=== PATIENT | female | born 1975 | race African-American/Black ===

== ENCOUNTER 2018-04-24 12:45 | Emergency (ER) | payer MEDICAID ==
[~2018-04-24] VITALS: Ht 167.6 cm; Wt 118.0 kg
[2018-04-24] MEDS ORDERED: TETRACAINE 0.5% OPHTH DROPS 4ML RIGHTEYE ONE (13:45)
[2018-04-24] MEDS ORDERED: FLUORESCEIN SODIUM 1MG/STRIP RIGHTEYE ONE (13:45)
[2018-04-24] MEDS ORDERED: LISINOPRIL 10MG TABLET PO ONE (15:45)
[2018-04-24] MEDS ORDERED: CLONIDINE 0.2MG TABLET PO ONE (17:00)
[2018-04-24 17:10] VITALS: BP 150/96
== END 2018-04-24 17:35 | disposition home or self-care (01) ==
LOC: ER 12:45
DX: H57.11 Ocular pain, right eye (principal); I10 Essential (primary) hypertension; Z98.890 Other specified postprocedural states
CPT/HCPCS: 99284

== ENCOUNTER 2021-09-14 16:02 | Emergency (ER) | payer MEDICAID ==
[~2021-09-14] VITALS: Ht 165.1 cm; Wt 175.0 kg
[2021-09-14 19:08] VITALS: BP 167/100
== END 2021-09-14 19:18 | disposition home or self-care (01) ==
LOC: ER 16:02
DX: M79.89 Other specified soft tissue disorders (principal); R25.2 Cramp and spasm; I10 Essential (primary) hypertension; I49.8 Other specified cardiac arrhythmias
CPT/HCPCS: 93005; 93971; 99284

== ENCOUNTER 2022-06-14 15:09 | Emergency (ER) | payer MEDICAID, OTHER ==
[~2022-06-14] VITALS: Ht 167.6 cm; Wt 146.0 kg
[2022-06-14 15:34] VITALS: BP 156/94
[2022-06-14] MEDS ORDERED: METF-873 PO (15:39)
[2022-06-14] MEDS ORDERED: HYDR12.54 PO (15:39)
[2022-06-14 21:20] LABS: BASOPHILS % 0.9 % (0.0-2.0); EOSINOPHILS % 4.8 % (0.0-5.0); HEMATOCRIT. 39.7 % (36.0-48.0); HEMOGLOBIN. 13.1 g/dL (12.0-16.0); MEAN CORPUSCULAR HEMOGLOBIN 27.6 pg (28.0-32.0); MEAN CORPUSCULAR VOLUME 83.5 fL (81.0-99.0); MEAN PLATELET VOLUME 7.7 fl (7.4-10.4); MONOCYTES % 7.3 % (2.0-8.0); PLATELET 340 x1000/uL (130-400); RED BLOOD CELL COUNT 4.75 mill/uL (4.2-5.4); RED CELL DISTRIBUTION WIDTH 14.9 % (11.6-14.6)
[2022-06-14 21:34] LABS: CHLORIDE 104 mEq/L (98-107)
[2022-06-15] MEDS ORDERED: IBUP-2029 MT (00:38)
[2022-06-15] MEDS ORDERED: METH-653 MT (00:38)
== END 2022-06-15 01:01 | disposition home or self-care (01) ==
LOC: ER 15:09
DX: M94.0 Chondrocostal junction syndrome [Tietze] (principal); R07.89 Other chest pain; E11.9 Type 2 diabetes mellitus without complications; I10 Essential (primary) hypertension; Z98.890 Other specified postprocedural states; Z79.899 Other long term (current) drug therapy
CPT/HCPCS: 36415; 71045; 80053; 84484; 85025; 85379; 93005; 99285

== ENCOUNTER 2022-12-21 13:27 | Emergency (ER) | payer MEDICAID, OTHER ==
[~2022-12-21] VITALS: Ht 167.6 cm; Wt 146.0 kg
[~2022-12-21 13:27] MED LIST: HYDR12.54 PO; IBUP-2029 MT; METF-873 PO; METH-653 MT
[2022-12-21 13:59] LABS: HEMATOCRIT. 37.8 % (36.0-48.0); HEMOGLOBIN. 12.9 g/dL (12.0-16.0); MEAN CORPUSCULAR HEMOGLOBIN 28.1 pg (28.0-32.0); MEAN CORPUSCULAR VOLUME 82.4 fL (81.0-99.0); MEAN PLATELET VOLUME 7.7 fl (7.4-10.4); PLATELET 314 x1000/uL (130-400); RED BLOOD CELL COUNT 4.59 mill/uL (4.2-5.4)
[2022-12-21 14:22] LABS: CHLORIDE 106 mEq/L (98-107)
[2022-12-21] MEDS ORDERED: MAGNESIUM/ALUMINUM HYDROXIDE/SIMETHICONE 30ML UDC PO STA (14:48)
[2022-12-21] MEDS ORDERED: ONDANSETRON 4MG ODT PO STA (14:48)
[2022-12-21] MEDS ORDERED: VISCOUS LIDOCAINE 2% 15 ML UDC PO STA (14:48)
[2022-12-21] MEDS ORDERED: FAMOTIDINE 20MG TABLET PO ONE (15:00)
[2022-12-21 15:16] LABS: PLATELET ESTIMATE NORMAL
[2022-12-21 15:43] LABS: CLARITY URINE CLOUDY (CLEAR); COLOR URINE YELLOW (YELLOW); KETONES URINE TRACE (NEGATIVE); LEUKOCYTE ESTERASE URINE NEGATIVE (NEGATIVE); NITRITE URINE NEGATIVE (NEGATIVE); OCCULT BLOOD URINE NEGATIVE (NEGATIVE); PH URINE 5.5 (4.5-8.0); PROTEIN URINE TRACE (NEGATIVE); SPECIFIC GRAVITY URINE 1.028 (1.005-1.030)
[2022-12-21 16:05] LABS: UCG SCREEN NEGATIVE
[2022-12-21 17:00] VITALS: BP 148/82
[2022-12-21] MEDS ORDERED: MAG355OR21 MT (17:03)
[2022-12-21] MEDS ORDERED: FAMO-135 MT (17:03)
[2022-12-21 17:30] LABS: HCG SCREEN NEGATIVE
== END 2022-12-21 17:27 | disposition home or self-care (01) ==
LOC: ER 13:37
DX: R10.9 Unspecified abdominal pain (principal); I10 Essential (primary) hypertension; E11.9 Type 2 diabetes mellitus without complications; Z98.890 Other specified postprocedural states
CPT/HCPCS: 36415; 76705; 80053; 81003; 81025; 83690; 84703; 85025; 99284; Q0162; Z7610

== ENCOUNTER 2024-06-20 12:25 | Emergency (ER) | payer MEDICAID ==
[~2024-06-20] VITALS: Ht 165.1 cm; Wt 147.4 kg
[~2024-06-20 12:25] MED LIST changes: +FAMO-135 MT; +MAG355OR21 MT; +METF-1149 PO; -METF-873 PO
[2024-06-20 12:30] VITALS: TEMP 98.2; O2SAT 100
[2024-06-20] MEDS ORDERED: KETO10TA2 MT (14:31)
[2024-06-20] MEDS ORDERED: AMOX1TAB16 MT (14:32)
[2024-06-20] MEDS ORDERED: CHLO473M2 MT (14:33)
[2024-06-20] MEDS: AMOXICILLIN 500MG CAPSULE PO ONE (14:59)
[2024-06-20] MEDS: KETOROLAC 30MG/ML VIAL IM ONE (14:59)
[2024-06-20 15:11] VITALS: BP 133/89; PULSE 82; RESP 17; O2SAT 97
== END 2024-06-20 15:12 | disposition home or self-care (01) ==
LOC: ER 12:25
DX: K04.7 Periapical abscess without sinus (principal); I10 Essential (primary) hypertension; E11.9 Type 2 diabetes mellitus without complications; Z98.890 Other specified postprocedural states; Z79.899 Other long term (current) drug therapy
CPT/HCPCS: 96372; 99283; J1885; Z7610

== ENCOUNTER 2024-08-16 12:31 | Emergency (ER) | payer MEDICAID, OTHER ==
[~2024-08-16] VITALS: Ht 165.1 cm; Wt 145.0 kg
[~2024-08-16 12:31] MED LIST changes: +AMOX1TAB16 MT; +CHLO473M2 MT; +KETO10TA2 MT
[2024-08-16 12:44] VITALS: O2SAT 98
[2024-08-16 14:43] LABS: CLARITY URINE CLEAR (CLEAR); COLOR URINE DARK YELLOW (YELLOW); GLUCOSE URINE NEGATIVE (NEGATIVE); KETONES URINE NEGATIVE (NEGATIVE); LEUKOCYTE ESTERASE URINE NEGATIVE (NEGATIVE); NITRITE URINE NEGATIVE (NEGATIVE); OCCULT BLOOD URINE NEGATIVE (NEGATIVE); PH URINE 5.5 (4.5-8.0); PROTEIN URINE TRACE (NEGATIVE); SPECIFIC GRAVITY URINE 1.029 (1.005-1.030); UROBILINOGEN URINE 0.2 E.U./dL (0.2-1.0)
[2024-08-16 14:54] LABS: SQUAMOUS EPITHELIAL CELL URINE 3+ /lpf (RARE/1+)
[2024-08-16 14:56] LABS: BACTERIA URINE 1+; WBC URINE 0-2 /hpf (0-2)
[2024-08-16 14:57] LABS: RBC URINE NONE SEEN /hpf (0-2)
[2024-08-16] MEDS ORDERED: CEPH500T MT (15:19)
[2024-08-16 15:42] VITALS: BP 146/89; PULSE 95; RESP 18; TEMP 36.89184; O2SAT 98
== END 2024-08-16 15:46 | disposition home or self-care (01) ==
LOC: ER 12:31
DX: N39.0 Urinary tract infection, site not specified (principal); E11.9 Type 2 diabetes mellitus without complications; I10 Essential (primary) hypertension; Z98.890 Other specified postprocedural states
CPT/HCPCS: 81003; 81025; 99283

== ENCOUNTER 2024-10-18 13:28 | Emergency (ER) | payer MEDICAID, OTHER ==
[~2024-10-18] VITALS: Ht 167.6 cm; Wt 145.2 kg
[~2024-10-18 13:28] MED LIST changes: +CEPH500T MT
[2024-10-18 13:30] VITALS: BP 159/96; TEMP 36.8; O2SAT 98
[2024-10-18 13:33] VITALS: PULSE 120; RESP 18; O2SAT 100
[2024-10-18 14:12] LABS: BASOPHILS % 0.7 % (0.0-2.0); HEMATOCRIT. 41.5 % (36.0-48.0); HEMOGLOBIN. 13.5 g/dL (12.0-16.0); LYMPHOCYTES % 36.8 % (20.0-50.0); MEAN CORPUSCULAR HEMOGLOBIN 27.3 pg (28.0-32.0); MEAN CORPUSCULAR HGB CONC 32.6 g/dL (31.0-37.0); MEAN CORPUSCULAR VOLUME 83.9 fL (81.0-99.0); MEAN PLATELET VOLUME 8.9 fl (7.4-10.4); MONOCYTES % 8.2 % (2.0-8.0); NEUTROPHILS % 53.3 % (40.0-76.0); PLATELET 309 x1000/uL (130-400); RED BLOOD CELL COUNT 4.94 mill/uL (4.2-5.4); RED CELL DISTRIBUTION WIDTH 14.5 % (11.6-14.6); WHITE BLOOD COUNT 6.5 x1000/uL (4.5-11.0)
[2024-10-18 14:13] LABS: CHLORIDE 99 mEq/L (98-107); POTASSIUM 4.2 mEq/L (3.5-5.1); SODIUM 136 mEq/L (136-145)
[2024-10-18 14:14] LABS: CALCIUM 9.9 mg/dL (8.7-10.4); CARBON DIOXIDE 28 mEq/L (21-32)
[2024-10-18 14:19] LABS: CREATININE 1.1 mg/dL (0.6-1.0); UREA NITROGEN BLOOD 15 mg/dL (9-23)
[2024-10-18 14:32] LABS: GLUCOSE 413 mg/dL (70-105)
[2024-10-18 15:02] LABS: CLARITY URINE CLEAR (CLEAR); COLOR URINE YELLOW (YELLOW); GLUCOSE URINE 3+ (NEGATIVE); KETONES URINE TRACE (NEGATIVE); LEUKOCYTE ESTERASE URINE NEGATIVE (NEGATIVE); NITRITE URINE NEGATIVE (NEGATIVE); OCCULT BLOOD URINE NEGATIVE (NEGATIVE); PH URINE 5.5 (4.5-8.0); PROTEIN URINE NEGATIVE (NEGATIVE); SPECIFIC GRAVITY URINE 1.042 (1.005-1.030); UROBILINOGEN URINE 0.2 E.U./dL (0.2-1.0)
[2024-10-18 15:16] LABS: ALANINE AMINOTRANSFERASE 29 IU/L (10-49); ALBUMIN 4.2 g/dL (3.2-4.8); ASPARTATE AMINOTRANSFERASE 21 IU/L (<34); BETA HYDROXYBUTYRATE 0.2 mMol/L (0.0-0.3); BILIRUBIN TOTAL 0.4 mg/dL (0.1-1.0); PROTEIN TOTAL 7.9 g/dL (6.0-8.3)
[2024-10-18 15:22] LABS: BILIRUBIN DIRECT < 0.1 mg/dL (<=3.0)
[2024-10-18] MEDS: SODIUM CHLORIDE 0.9% 1,000 ML IV ONE (15:30)
[2024-10-18 15:50] LABS: BACTERIA URINE 1+; SQUAMOUS EPITHELIAL CELL URINE FEW /lpf (RARE/1+); WBC URINE 0-2 /hpf (0-2); YEAST URINE NONE SEEN
[2024-10-18 16:50] LABS: TROPONIN I HIGH SENSITIVITY < 4 ng/L (3.0-34)
== END 2024-10-18 19:40 | disposition home or self-care (01) ==
LOC: ER 13:28
DX: E11.65 Type 2 diabetes mellitus with hyperglycemia (principal); H53.8 Other visual disturbances; I10 Essential (primary) hypertension; Z79.899 Other long term (current) drug therapy; Z79.84 Long term (current) use of oral hypoglycemic drugs; Z98.890 Other specified postprocedural states
CPT/HCPCS: 99285; 96360; 70450; 71045; 80076; 80048; 81003; 81025; 82010; 82962; 85025; 84484; 93005; 36415; J7030; 96361